=== PATIENT | male | born 2000 | race Caucasian/White ===

== ENCOUNTER 2019-06-08 16:17 | Emergency (ER) | payer OTHER ==
[~2019-06-08] VITALS: Ht 175.3 cm; Wt 65.1 kg
[2019-06-08 16:34] VITALS: BP 120/75; TEMP 98.2
[2019-06-08 17:55] VITALS: PULSE 86
== END 2019-06-08 17:57 | disposition home or self-care (01) ==
LOC: COL.ER 16:17
DX: S60.511A Abrasion of right hand, initial encounter (principal); R40.2412 Glasgow coma scale score 13-15, at arrival to emergency department; V48.5XXA Car driver injured in noncollision transport accident in traffic accident, initial encounter